=== PATIENT | male | born 1980 | race African-American/Black ===

== ENCOUNTER 2017-06-15 00:23 | Emergency (ER) | payer OTHER ==
[2017-06-15 00:36] VITALS: TEMP 97.9
--- NOTE | 2017-06-15 01:11 | ED.PDOC ---
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 Timing/Duration: momentarily Severity: moderate Improving Factors: nothing Worsening Factors: nothing Associated Symptoms: denies symptoms Allergies/Adverse Reactions: Allergies NO KNOWN ALLERGY Allergy (Verified 06/15/17 00:39) Home Medications: Ambulatory Orders NK [NK] 06/15/17 Review of Systems - Review of Systems Constitutional: States: no symptoms reported EENTM: States: no symptoms reported Respiratory: States: no symptoms reported Cardiology: States: no symptoms reported Gastrointestinal/Abdominal: States: no symptoms reported Genitourinary: States: no symptoms reported Musculoskeletal: States: no symptoms reported Neurological: States: see HPI, other - passed ou Endocrine: States: no symptoms reported Past Medical History (General) - Patient Medical History Hx Diabetes: No Surgical History: no surgical history - Vaccination History Immunizations Up to Date: No - Triage Comment ED Triage Comment: pt slow to respond to questions, but answers appropriately Family Medical History - Family History Father Family History: Unknown Physical Exam - Physical Exam General Appearance: Alert, Comfortable, No apparent distress Eye Exam: bilateral normal Ears, Nose, Throat: hearing grossly normal, normal ENT inspection, normal pharynx Neck: non-tender, full range of motion, supple Respiratory: chest non-tender, lungs clear, normal breath sounds Cardiovascular/Chest: normal peripheral pulses, regular rate, rhythm, no murmur Peripheral Pulses: radial,right: 1+, radial,left: 1+ Gastrointestinal/Abdominal: normal bowel sounds, non tender, soft Back Exam: normal inspection, no CVA tenderness, no vertebral tenderness Extremity: normal range of motion, non-tender, normal inspection, no calf tenderness, pedal edema - ankle right leg Neurologic: no motor/sensory deficits, alert, normal mood/affect, oriented x 3, other - handcuffed Skin Exam: normal color, warm/dry Lymphatic: no adenopathy Progress - Progress Progress: 06/15/17 01:24 Vital Signs - 8 hr 06/15/17 00:31 Temperature 97.9 F Pulse Rate [ 98 H Right] Respiratory 20 Rate Blood Pressure 152/94 [Right Arm] O2 Sat by Pulse 99 Oximetry - Results/Orders Results/Orders: Laboratory Tests 06/15/17 06/15/17 06/15/17 01:25 01:25 01:25 WBC 7.2 RBC 5.80 Hgb 17.0 Hct 51.4 MCV 88.5 MCH 29.2 MCHC 33.0 RDW 13.3 Plt Count 168 MPV 9.9 Absolute Neuts (auto) 4.60 Absolute Lymphs (auto) 1.50 Absolute Monos (auto) 0.70 Absolute Eos (auto) 0.40 Absolute Basos (auto) 0.10 Neutrophils % 64.1 Lymphocytes % 20.7 Monocytes % 9.1 H Eosinophils % 5.2 H Basophils % 0.9 D-Dimer, Quantitative < 230 Sodium 141 Potassium 3.4 L Chloride 106 Carbon Dioxide 26 Anion Gap 12.4 BUN 16 Creatinine 0.94 BUN/Creatinine Ratio 17.0 Random Glucose 107 H Serum Osmolality 282.9 Calcium 9.4 Total Bilirubin 0.7 AST 17 ALT 20 Alkaline Phosphatase 39 L Creatine Kinase 190 H CK-MB (CK-2) 3.5 CK-MB (CK-2) % Not Reportable Troponin I < 0.02 B-Natriuretic Peptide Serum Total Protein 7.0 Albumin 4.0 Globulin 3.0 Albumin/Globulin Ratio 1.3 Urine Color Urine Appearance Urine pH Ur Specific Usk Urine Protein Urine Glucose (UA) Urine Ketones Urine Blood Urine Nitrite Urine Bilirubin Urine Urobilinogen Ur Leukocyte Esterase Urine RBC Urine WBC Ur Epithelial Cells Urine Bacteria Urine Mucus Urine Opiates Screen Urine Barbiturates Ur Phencyclidine Scrn U Amphetamin/Meth Scrn U Benzodiazepines Scrn U Cocaine Metab Screen U Cannabinoids Screen Ethyl Alcohol 06/15/17 06/15/17 06/15/17 01:25 01:25 02:05 WBC RBC Hgb Hct MCV MCH MCHC RDW Plt Count MPV Absolute Neuts (auto) Absolute Lymphs (auto) Absolute Monos (auto) Absolute Eos (auto) Absolute Basos (auto) Neutrophils % Lymphocytes % Monocytes % Eosinophils % Basophils % D-Dimer, Quantitative Sodium Potassium Chloride Carbon Dioxide Anion Gap BUN Creatinine BUN/Creatinine Ratio Random Glucose Serum Osmolality Calcium Total Bilirubin AST ALT Alkaline Phosphatase Creatine Kinase CK-MB (CK-2) CK-MB (CK-2) % Troponin I B-Natriuretic Peptide < 5.0 Serum Total Protein Albumin Globulin Albumin/Globulin Ratio Urine Color Urine Appearance Urine pH Ur Specific Usk Urine Protein Urine Glucose (UA) Urine Ketones Urine Blood Urine Nitrite Urine Bilirubin Urine Urobilinogen Ur Leukocyte Esterase Urine RBC Urine WBC Ur Epithelial Cells Urine Bacteria Urine Mucus Urine Opiates Screen Negative Urine Barbiturates Negative Ur Phencyclidine Scrn Negative U Amphetamin/Meth Scrn Negative U Benzodiazepines Scrn Negative U Cocaine Metab Screen Negative U Cannabinoids Screen Positive H Ethyl Alcohol < 5.40 06/15/17 02:05 WBC RBC Hgb Hct MCV MCH MCHC RDW Plt Count MPV Absolute Neuts (auto) Absolute Lymphs (auto) Absolute Monos (auto) Absolute Eos (auto) Absolute Basos (auto) Neutrophils % Lymphocytes % Monocytes % Eosinophils % Basophils % D-Dimer, Quantitative Sodium Potassium Chloride Carbon Dioxide Anion Gap BUN Creatinine BUN/Creatinine Ratio Random Glucose Serum Osmolality Calcium Total Bilirubin AST ALT Alkaline Phosphatase Creatine Kinase CK-MB (CK-2) CK-MB (CK-2) % Troponin I B-Natriuretic Peptide Serum Total Protein Albumin Globulin Albumin/Globulin Ratio Urine Color Yellow Urine Appearance Clear Urine pH 6.0 Ur Specific Usk 1.025 Urine Protein Negative Urine Glucose (UA) Negative Urine Ketones Trace Urine Blood Negative Urine Nitrite Negative Urine Bilirubin Negative Urine Urobilinogen 0.2 Ur Leukocyte Esterase Negative Urine RBC 0 Urine WBC 0 Ur Epithelial Cells 0 Urine Bacteria Rare Urine Mucus Trace Urine Opiates Screen Urine Barbiturates Ur Phencyclidine Scrn U Amphetamin/Meth Scrn U Benzodiazepines Scrn U Cocaine Metab Screen U Cannabinoids Screen Ethyl Alcohol Awake ,resting comfortably-[id number] - EKG/XRAY/CT EKG: Sinus, nonspecific ST T wave Chg Comments: heart rate-76,sinus arrhythmia CT Ordered: Yes - head-no acute abnormalities noted Departure - Departure Clinical Impression: Altered awareness, transient Time of Disposition: 03:01 - discharge under police custody Disposition: [facility] Condition: Good Departure Forms: ED Discharge - Pt. Copy, Patient Portal Self Enrollment Home Medications: Ambulatory Orders NK [NK] 06/15/17
--- NOTE | 2017-06-15 02:02 | CT ---
Procedure: CT HEAD WITHOUT IV CONTRAST Exam Date: 06/15/2017 Ordering Provider: Shawn Suh Clinical Indication: passed out Comparison: None Technique: Using a helical scanner, sequential axial imaging of the brain was obtained without the administration of intravenous contrast. The exam was obtained from the skull base to vertex. This exam was performed according to our departmental dose optimization program which includes use of automated exposure control, adjustment of the mA and/or kV according to patient size and/or use of iterative reconstruction technique. Findings: Ventricular size and configuration are normal. There is no midline shift or hydrocephalus. There is no acute intracranial hemorrhage or mass effect. There is no acute infarct. Cortical krueger matter, subcortical white matter, and periventricular white matter have normal appearance. The calvarium is intact. There is no fracture. There is no lytic or sclerotic lesion. The visualized paranasal sinuses and mastoid air cells are unremarkable. IMPRESSION: No acute intracranial abnormality demonstrated. Electronically signed by: Jonathan Miranda MD 06/15/2017 2:00 AM CDT
[2017-06-15 02:53] VITALS: O2SAT 98
[2017-06-15 03:11] VITALS: BP 147/91
== END 2017-06-15 03:11 ==
LOC: ER 00:23
DX: R40.4 Transient alteration of awareness (principal)